=== PATIENT | female | born 1970 | race Caucasian/White ===

== ENCOUNTER 2020-05-26 13:27 | Outpatient (CLI) | payer OTHER, SELFPAY ==
--- NOTE | ~2020-05-26 | US_ITS ---
EXAMINATION: US thyroid DATE: 05/26/2020 14:12 INDICATION: Thyroid nodule. TECHNIQUE: Multiple ultrasound images of the thyroid were obtained. COMPARISON: Ultrasound 09/11/2019, 06/06/2018 FINDINGS: The right thyroid lobe measures 5.3 x 4.5 x 2.6 cm. The left thyroid lobe measures 4.8 x 1.2 x 1.4 c m. In the right thyroid lobe, there is a 4.7 cm mixed cystic and solid, isoechoic, bosuh-itie-lwly n odule with ill-defined margin without echogenic foci (TR2), stable from 06/06/18. Fine-needle aspirati on on 07/13/2018 demonstrated benign results. In left thyroid lobe, there is a 15 mm mixed cystic and solid, isoechoic, [id number] nodule with smooth margin without echogenic foci (TI-RADS TR2). IMPRESSION: 1. Thyroid nodules, likely not clinically significant. No follow-up is needed. Reviewed, dictated and finalized at location A.
== END 2020-05-26 13:28 | disposition home or self-care (01) ==
LOC: ANHIMG 13:28
PROVIDERS: PCP Internal Medicine; Visit Provider Internal Medicine
DX: E04.2 Nontoxic multinodular goiter (principal)
CPT/HCPCS: 76536

== ENCOUNTER → 2021-02-18 14:52 | Outpatient (CLI) | payer OTHER, SELFPAY ==
--- NOTE | ~2021-02-18 | MM_ITS ---
EXAMINATION: MM screening [facility] w [facility] HISTORY: Screening mammogram TECHNIQUE: Craniocaudal and mediolateral oblique 3-D tomosynthesis images were obtained and synthetic 2-D images were generated. CAD analysis was submitted and interpreted. COMPARISON: 10/03/2019, 08/24/2017 bilateral digital screening mammogram examinations BREAST PARENCHYMAL COMPOSITION: There are scattered areas of fibroglandular density. FINDINGS: Stable fibroglandular asymmetry. There is no evidence of suspicious mass, calcification, or architectural distortion to suggest malignancy in either breast. There has been no suspicious interv al change. IMPRESSION: 1. No mammographic evidence of malignancy. 2. Recommend routine screening mammography in one year. BI-RADS Category 2: Benign finding(s). Reviewed, dictated and finalized at location A.
== END ==
PROVIDERS: Visit Provider Obstetrics & Gynecology
DX: Z12.31 Encounter for screening mammogram for malignant neoplasm of breast (principal)
CPT/HCPCS: 77063; 77067

== ENCOUNTER → 2022-04-06 13:41 | Outpatient (CLI) | payer OTHER, SELFPAY ==
--- NOTE | ~2022-04-06 | MM_ITS ---
EXAMINATION: MM screening [facility] HISTORY: Screening mammogram TECHNIQUE: Craniocaudal and mediolateral oblique 3-D tomosynthesis images were obtained and synthetic 2-D images were generated. CAD analysis was submitted and interpreted. COMPARISON: 02/18/2021, 10/03/2019, 08/24/2017 bilateral screening mammogram examinations BREAST PARENCHYMAL COMPOSITION: There are scattered areas of fibroglandular density. FINDINGS: Stable mild fibroglandular asymmetry. There is no evidence of suspicious mass, calcificatio n, or architectural distortion to suggest malignancy in either breast. There has been no suspicious i nterval change. IMPRESSION: 1. No mammographic evidence of malignancy. 2. Recommend routine screening mammography in one year. BI-RADS Category 2: Benign finding(s). Reviewed, dictated and finalized at location A.
== END ==
PROVIDERS: PCP Internal Medicine; Visit Provider Obstetrics & Gynecology
DX: Z12.31 Encounter for screening mammogram for malignant neoplasm of breast (principal)
CPT/HCPCS: 77063; 77067

== ENCOUNTER → 2022-06-29 10:34 | Outpatient (CLI) | payer OTHER, SELFPAY ==
--- NOTE | ~2022-06-29 | US_ITS ---
EXAMINATION: US pelvic complete w TV DATE: 06/29/2022 11:09 INDICATION: Endometrial hyperplasia Comparison:Ultrasound dated 09/20/2019 TECHNIQUE: Multiple transabdominal and endovaginal sonographic images of the pelvis performed. FINDINGS: The uterus measures 8 x 3.6 x 4.4 cm. There are multiple uterine fibroids, largest measurin g 1.8 cm. The endometrial complex measures 5 mm. The right ovary measures 2.8 x 2.2 x 2.6 cm and the left ovary measures 2.6 x 1.3 x 2.4 cm. There is a right ovarian cyst measuring 2 cm. There are small follicles in each ovary. Normal doppler signal i n both ovaries. There is no free fluid in the pelvis. There are no abnormal masses seen on either side. IMPRESSION: 1. Uterine fibroids measuring up to 1.8 cm maximum dimension. 2: Right ovarian cyst measuring 2 cm maximum dimension. Reviewed, dictated and finalized at location B.
== END ==
PROVIDERS: PCP Internal Medicine; Visit Provider Nurse Practitioner Family
DX: N85.00 Endometrial hyperplasia, unspecified (principal); N95.1 Menopausal and female climacteric states; D25.9 Leiomyoma of uterus, unspecified; N83.201 Unspecified ovarian cyst, right side
CPT/HCPCS: 76830; 76856

== ENCOUNTER → 2023-05-25 11:09 | Outpatient (CLI) | payer OTHER, SELFPAY ==
--- NOTE | ~2023-05-25 | MM_ITS ---
EXAMINATION: MM screening [facility] HISTORY: Screening mammogram TECHNIQUE: Craniocaudal and mediolateral oblique 3-D tomosynthesis images were obtained and synthetic 2-D images were generated. CAD analysis was submitted and interpreted. COMPARISON: 04/06/2022, 02/18/2021, 10/03/2019 bilateral screening mammogram examinations BREAST PARENCHYMAL COMPOSITION: There are scattered areas of fibroglandular density. FINDINGS: There is no evidence of suspicious mass, calcification, or architectural distortion to sugg est malignancy in either breast. There has been no suspicious interval change. IMPRESSION: 1. No mammographic evidence of malignancy. 2. Recommend routine screening mammography in one year. BI-RADS Category 1: Negative Reviewed, dictated and finalized at location A.
== END ==
PROVIDERS: PCP Obstetrics & Gynecology; Visit Provider Obstetrics & Gynecology
DX: Z12.31 Encounter for screening mammogram for malignant neoplasm of breast (principal)
CPT/HCPCS: 77063; 77067

== ENCOUNTER → 2023-08-02 12:02 | Outpatient (CLI) | payer OTHER, SELFPAY ==
--- NOTE | ~2023-08-02 | US_ITS ---
Thyroid ultrasound. Clinical History: Thyroiditis COMPARISON: 05/26/2020 Findings: Real-time sonography of the thyroid gland was performed. The right lobe measures 7.4 x 3.6 x 6.0 cm. The left lobe measures 5.1 x 1.3 x 1.0 cm. The isthmus is 2 mm in AP diameter. 1.6 cm cystic nodule present in the left thyroid lobe. There is an adjacent 0.5 cm cystic nodule in t he left thyroid dominant nodule. Right thyroid lobe may be nearly completely replaced by a very large mixed solid and cystic nodule, versus a heterogeneous parenchyma with small cystic nodules. Appearan ce is similar to prior exams. Impression: Probable large mixed solid and cystic nodule, largely replacing the right thyroid lobe, similar to pr ior exams. Benign appearing cystic nodules in the left thyroid lobe. Reviewed, dictated and finalized at location . Impression: Probable large mixed solid and cystic nodule, largely replacing the right thyro id lobe, similar to prior exams. Benign appearing cystic nodules in the left thyroid lobe.
== END ==
PROVIDERS: PCP Internal Medicine; Visit Provider Physician Assistant
DX: E06.9 Thyroiditis, unspecified (principal)
CPT/HCPCS: 76536

== ENCOUNTER 2024-11-01 10:53 | Outpatient (CLI) | payer OTHER, SELFPAY ==
--- NOTE | ~2024-11-01 | MM_ITS ---
EXAMINATION: MM screening [facility] BI w sara HISTORY: Screening TECHNIQUE: Craniocaudal and mediolateral oblique 3-D tomosynthesis images were obtained and synthetic 2-D images were generated. CAD analysis was submitted and interpreted. COMPARISON: Comparison to multiple prior studies sequentially, with oldest reviewed study dated 09/15. BREAST PARENCHYMAL COMPOSITION: Not dense: There are scattered areas of fibroglandular density. FINDINGS: Bilateral breast asymmetries are stable. There is no evidence of suspicious mass, calcifica tion, or architectural distortion to suggest malignancy in either breast. There has been no suspiciou s interval change. IMPRESSION: 1. No mammographic evidence of malignancy. 2. Recommend routine screening mammography in one year. BI-RADS Category 2: Benign finding(s). Reviewed, dictated and finalized at location B. AL CLERK
== END 2024-11-01 10:54 | disposition home or self-care (01) ==
LOC: MICIMG 10:53
PROVIDERS: PCP Internal Medicine; Visit Provider Internal Medicine
DX: Z12.31 Encounter for screening mammogram for malignant neoplasm of breast (principal)
CPT/HCPCS: 77063; 77067